=== PATIENT | female | born 1980 | race African-American/Black ===

== ENCOUNTER 2017-10-09 19:02 | Emergency (ER) | payer BC ==
[~2017-10-09] VITALS: Ht 165.1 cm; Wt 61.2 kg
[2017-10-09 19:12] VITALS: BP 101/66
== END 2017-10-09 20:26 | disposition home or self-care (01) ==
LOC: ER 19:02
DX: S29.012A Strain of muscle and tendon of back wall of thorax, initial encounter (principal); M25.511 Pain in right shoulder; M79.644 Pain in right finger(s); R68.84 Jaw pain; R42 Dizziness and giddiness; V89.2XXA Person injured in unspecified motor-vehicle accident, traffic, initial encounter; Y92.89 Other specified places as the place of occurrence of the external cause; Y93.89 Activity, other specified; Y99.8 Other external cause status